=== PATIENT | male | born 1995 | race Caucasian/White ===

== ENCOUNTER 2020-05-02 09:11 | Emergency (ER) | payer BC ==
[~2020-05-02] VITALS: Ht 172.7 cm; Wt 95.5 kg
[2020-05-02 09:20] VITALS: TEMP 98.3
[2020-05-02 11:50] VITALS: BP 122/77; PULSE 79
== END 2020-05-02 11:57 | disposition home or self-care (01) ==
LOC: COL.ER 09:11 → EDSEX 09:11 → COL.ER 09:13
DX: S61.213A Laceration without foreign body of left middle finger without damage to nail, initial encounter (principal); W26.0XXA Contact with knife, initial encounter; Y92.219 Unspecified school as the place of occurrence of the external cause